=== PATIENT | male | born 1965 | race Caucasian/White ===

== ENCOUNTER 2018-03-07 16:32 | Outpatient (CLI) | payer OTHER ==
--- NOTE | 2018-03-08 11:49 | Diagnostic Imaging Report ---
Indication: pain. Left hand pain Findings: 3 views of the left hand were obtained. Normal alignment is demonstrated. No acute fractures, erosions, or periosteal reaction are seen. Soft tissues are unremarkable. Impression: No acute findings.
== END 2018-03-07 18:32 | disposition home or self-care (01) ==
LOC: RAD 16:32
DX: M25.542 Pain in joints of left hand (principal)